=== PATIENT | female | born 1965 ===

== ENCOUNTER 2021-03-25 07:30 | Inpatient (IN) ==
[2021-04-22] MEDS ORDERED: Buffered Lidocaine 1% SYRIN 1 ml INTRADERM ONE (06:00)
[2021-04-22] MEDS ORDERED: Lactated Ringers 1000 ml BAG 1,000 ML IV SCH (06:00)
[2021-04-22] MEDS ORDERED: Lidocaine 2% PF 5 ML VIAL ONE (08:46)
[2021-04-22] MEDS ORDERED: Ondansetron 4 mg VIAL 2 MG/ML 2 ml VIAL ONE (08:46)
[2021-04-22] MEDS ORDERED: Dexamethasone IV 4 MG/ML VIAL 1 ml VIAL ONE (08:46)
[2021-04-22] MEDS ORDERED: Propofol 10 MG/ML 20 ML BTL ONE (08:46)
[2021-04-22] MEDS ORDERED: Rocuronium 50 mg VIAL 10 mg/ml 5 ml VIAL (50 mg) ONE ×2 (08:47→11:18)
[2021-04-22] MEDS ORDERED: Midazolam 2 mg/2 ml VIAL 1 mg/ml 2 ml VIAL (2 mg) ONE (08:47)
[2021-04-22] MEDS ORDERED: fentaNYL 250 mcg/5 ml 50 MCG/ML 5 ml VIAL (250 MCG) ONE (08:47)
[2021-04-22] MEDS ORDERED: Heparin 5000 UNITS/ML 1 mL VIAL ONE (09:22)
[2021-04-22] MEDS ORDERED: ceFAZolin 1 GM ADVAN 1 GM ADDV.VIAL IVPB ONE (09:22)
[2021-04-22] MEDS ORDERED: ceFAZolin 2 GM PREMIX 2 GM/50 ML BAG ONE (09:22)
[2021-04-22] MEDS ORDERED: Methylene Blue 0.5 % 50 MG/10 ML AMP IV ONE (09:36)
[2021-04-22] MEDS ORDERED: Bupivacaine 0.5% SDV PF 30ML VIAL ONE (09:37)
[2021-04-22] MEDS ORDERED: Lidocaine 1% w EPI 1:100,000 MDV 20 ML VIAL ONE (09:37)
[2021-04-22] MEDS ORDERED: Phenylephrine 40 mcg/mL 10mL (400mcg) SYRINGE ONE (10:41)
[2021-04-22] MEDS ORDERED: EPHEDrine (Pressors) 50 MG/ML VIAL ONE ×2 (10:48)
[2021-04-22] MEDS ORDERED: Sterile Water for Inj 10 ML ONE (10:48)
[2021-04-22] MEDS ORDERED: Phenylephrine IV 10 MG/ML 1 ml VIAL ONE (11:04)
[2021-04-22] MEDS ORDERED: DiMENhydriNATE IV 50 mg/ml 1 ml VIAL IV PUSH PRN (11:34)
[2021-04-22] MEDS ORDERED: Ondansetron 4 mg VIAL 2 MG/ML 2 ml VIAL IV PRN (11:34)
[2021-04-22] MEDS ORDERED: Naloxone 0.4 mg VIAL 0.4 mg/ml 1 ml VIAL IV PRN (11:34)
[2021-04-22] MEDS ORDERED: HYDROcodone/ACET. 7.5/325 LIQ 15 ML UDC PO PRN (13:01)
[2021-04-22] MEDS ORDERED: HYDROmorphone 0.5 MG/0.5 ML SYRINGE IV SLOW PU PRN (13:01)
[2021-04-22] MEDS ORDERED: Dextrose 50% Syringe 50 ml 25 GM/50 ML SYRINGE IV PUSH PRN (13:05)
[2021-04-22] MEDS ORDERED: fentaNYL 100 mcg/2 ml 50 MCG/ML VIAL ONE ×3 (13:14→13:53)
[2021-04-22] MEDS: fentaNYL 100 mcg/2 ml 50 MCG/ML VIAL IV PRN ×5 (13:15→13:50)
[2021-04-22] MEDS: Lactated Ringers 1000 ml BAG 1,000 ML IV SCH (14:32)
[2021-04-22] MEDS: Ondansetron 4 mg VIAL 2 MG/ML 2 ml VIAL IV PRN ×2 (14:38→23:25)
[2021-04-22] MEDS: Heparin 5000 UNITS/ML 1 mL VIAL SUBCUT SCH (22:05)
[2021-04-23] MEDS: Lactated Ringers 1000 ml BAG 1,000 ML IV SCH ×2 (03:32→10:38)
[2021-04-23] MEDS: Heparin 5000 UNITS/ML 1 mL VIAL SUBCUT SCH ×3 (05:22→23:01)
[2021-04-23] MEDS ORDERED: D5W 1/2 NS KCl 20 meq 1000 ml 1,000 ML IV SCH (14:00)
[2021-04-24] MEDS: Heparin 5000 UNITS/ML 1 mL VIAL SUBCUT SCH (06:08)
[2021-04-24 07:57] VITALS: BP 100/61
[2021-04-25] MEDS ORDERED: Scopolamine PATCH Remove NOTE PATCH OFF ONE ×2 (11:34→14:00)
== END 2021-04-24 09:55 | disposition home or self-care (01) | DRG 403 ==
LOC: AA 04-22 08:59 → SSU 04-22 14:18
PROVIDERS: ADMIT Surgery; ATTEND Surgery